=== PATIENT | female | born 1980 | race American Indian/Alaskan Native ===

== ENCOUNTER 2016-12-02 10:28 | Emergency (ER) | payer SELFPAY ==
[2016-12-02] MEDS ORDERED: NORVASC PO ONE (18:31)
--- NOTE | 2016-12-02 18:31 | Emergency Department Report ---
ED Neuro Deficit HPI - General Chief Complaint: Neuro Symptoms/Deficit Stated Complaint: R FOOT NUMB/PAIN Time Seen by Provider: 12/02/16 17:47 Source: patient Mode of arrival: Ambulatory Limitations: No Limitations - History of Present Illness Initial Comments: 36-year-old female past medical history hypertension presents with complaint of one month of right lower extremity sensation of tingling and numbness above the right foot on skin. Patient also states that she has been off of her hypertension medicines for approximately 5-6 months. States that she self discontinued her hypertension medicines due to financial reasons. On exam patient is awake alert and oriented 3 fully lucid cooperative, ambulatory. Patient also brought her 1-year-old son for evaluation as she is concerned he has an ear infection. On exam and during interview patient denies any chest pain palpitations shortness of breath nausea vomiting any upper extremity paresthesias or any weakness. Denies any recent trauma. No recent falls. Denies any recent travel. Denies any fever or chills. She denies any personal hx of CVA. Patient denies any lower extremity swelling no history of DVT or PE. States she has Copper IUD but not on any hormonal control, no recent surgeries. Onset/Timin -: month(s) Location: right leg Place: home Severity: mild Quality: burning Improves With: none Worsens With: none On Anticoagulants: No Context: gradual onset Treatments Prior to Arrival: none - Related Data Home Medications: Previous Rx's Medication Instructions Recorded Last Taken Type amLODIPine [Norvasc] 5 mg PO DAILY #30 tab 12/02/16 Unknown Rx Allergies/Adverse Reactions: Allergies Allergy/AdvReac Type Severity Reaction Status Date / Time No Known Allergies Allergy Unverified 12/02/16 10:51 ED Review of Systems ROS: Stated complaint: R FOOT NUMB/PAIN Other details as noted in HPI Constitutional: denies: chills, fever Eyes: denies: eye pain, eye discharge, vision change ENT: denies: ear pain, throat pain Respiratory: denies: cough, shortness of breath, wheezing Cardiovascular: denies: chest pain, palpitations Endocrine: no symptoms reported Gastrointestinal: denies: abdominal pain, nausea, diarrhea Genitourinary: denies: urgency, dysuria, discharge Musculoskeletal: denies: back pain, joint swelling, arthralgia Skin: denies: rash, lesions Neurological: denies: headache, weakness, paresthesias Psychiatric: denies: anxiety, depression Hematological/Lymphatic: denies: easy bleeding, easy bruising ED Past Medical Hx - Past Medical History Hx Hypertension: Yes - Social History Smoking Status: Current Every Day Smoker - Medications Home Medications: Home Medications Medication Instructions Recorded Confirmed Last Taken Type amLODIPine [Norvasc] 5 mg PO DAILY #30 tab 12/02/16 Unknown Rx ED Neuro Physical Exam - General Limitations: No Limitations General appearance: alert, in no apparent distress Suspected Stroke: No - Head Head exam: Present: atraumatic, normocephalic - Eye Eye exam: Present: normal appearance, PERRL, EOMI - ENT ENT exam: Present: mucous membranes moist - Neck Neck exam: Present: normal inspection - Respiratory Respiratory exam: Present: normal lung sounds bilaterally. Absent: respiratory distress - Cardiovascular Cardiovascular Exam: Present: regular rate, normal rhythm. Absent: systolic murmur, diastolic murmur, rubs, gallop - GI/Abdominal GI/Abdominal exam: Present: soft, normal bowel sounds - Extremities Exam Extremities exam: Present: normal inspection, full ROM - Expanded Lower Extremity Exam Right Hip exam: Present: normal inspection, full ROM Upper Leg exam: Present: normal inspection, full ROM Knee exam: Present: normal inspection, full ROM Lower Leg exam: Present: normal inspection, full ROM Ankle exam: Present: normal inspection, full ROM Foot/Toe exam: Present: normal inspection, full ROM Neuro vascular tendon exam: Present: no vascular compromise (H and has strong dorsalis pedis and posterior tibial pulses capillary refill less than 1 second toes distal sensation is fully intact to light touch sharp sensation tested with 18-gauge needle and dull sensation tested with tip of blunt IV catheter cover) Gait: Positive: observed and normal 1 - Patient states she has been feeling intermittent tingling burning and intermittent numbness sensation in this region - Back Exam Back exam: Present: normal inspection - Neurological Exam Neurological exam: Present: alert, oriented X3, CN II-XII intact, normal gait - NIHSS Assessment Interval: Baseline 1a. Level of Consciousness: alert 1b. LOC Questions: answers correctly 1c. LOC Commands: performs tasks correctly 2. Best Gaze: normal 3. Visual: no visual loss 4. Facial Palsy: normal symmetrical movement 5b. Motor Arm Right: no drift 5a. Motor Arm Left: no drift 6a. Motor Leg Left: no drift 6b. Motor Leg Right: no drift 7. Limb Ataxia: absent 8. Sensory: normal 9. Best Language: no aphasia 10. Dysarthria: normal 11. Extinction/Inattention: no abnormality Total Score: 0 Stroke Severity: No Stroke Symptoms - Psychiatric Psychiatric exam: Present: normal affect, normal mood - Skin Skin exam: Present: warm, dry, intact, normal color. Absent: rash ED Course Vital Signs 12/02/16 12/02/16 12/02/16 10:36 18:50 18:51 Temperature 98.3 F 98.5 F Pulse Rate 87 72 Respiratory 16 16 16 Rate Blood Pressure 174/117 Blood Pressure 152/104 [Left] O2 Sat by Pulse 100 100 99 Oximetry 12/02/16 12/02/16 18:57 20:45 Temperature Pulse Rate 72 72 Respiratory 16 Rate Blood Pressure 153/104 Blood Pressure 186/107 [Left] O2 Sat by Pulse 97 Oximetry - Lab Data Result diagrams: 12/02/16 19:47 12/02/16 19:47 Lab Results 12/02/16 12/02/16 12/02/16 Range/Units 19:47 19:47 19:47 WBC 6.9 (4.5-11.0) K/mm3 RBC 4.85 (3.65-5.03) M/mm3 Hgb 13.6 (10.1-14.3) gm/dl Hct 43.2 H (30.3-42.9) % MCV 89 (79-97) fl MCH 28 (28-32) pg MCHC 32 (30-34) % RDW 15.6 H (13.2-15.2) % Plt Count 266 (140-440) K/mm3 Lymph % (Auto) 43.1 H (13.4-35.0) % [place] % (Auto) 8.4 H (0.0-7.3) % Eos % (Auto) 5.8 H (0.0-4.3) % Baso % (Auto) 1.1 (0.0-1.8) % Lymph # 3.0 (1.2-5.4) K/mm3 [place] # 0.6 (0.0-0.8) K/mm3 Eos # 0.4 (0.0-0.4) K/mm3 Baso # 0.1 (0.0-0.1) K/mm3 Seg Neutrophils % 41.6 (40.0-70.0) % Seg Neutrophils # 2.9 (1.8-7.7) K/mm3 Sodium 139 (137-145) mmol/L Potassium 4.4 (3.6-5.0) mmol/L Chloride 102.5 (98-107) mmol/L Carbon Dioxide 22 (22-30) mmol/L Anion Gap 19 mmol/L BUN 9 (7-17) mg/dL Creatinine 0.7 (0.7-1.2) mg/dL Estimated GFR > 60 ml/min BUN/Creatinine Ratio 12.85 % Glucose 85 (65-100) mg/dL Calcium 9.1 (8.4-10.2) mg/dL HCG, Qual Negative (Negative) - Medical Decision Making A/P: Right lower extremity paresthesias, possible peripheral neuropathy, uncontrolled hypertension 1-restart patient on amlodipine 2-patient has good distal pulses on bedside arterial Doppler, good distal sensation on clinical exam, strong dorsalis pedis and posterior tibial pulses strength is 5/5 all extremities no clinical signs of CVA. 3-pt has no clinical signs of dvt/pe, Well Score 0 points Low risk group for DVT. Unlikely according to [facility] DVT studies. 4-CT head within normal limits no signs of infarct, patient has no clinical signs of CVA no pronator drift strength is 5 out of 5 all extremities no facial droop no slurred speech 5- referral to neurology and primary care for workup of paresthesias 6-thighs patient to take her hypertension medicine as uncontrolled hypertension can result in complications including peripheral neuropathy stroke and heart attack permanent disability and/or stroke and intracranial hemorrhage can result in . Patient stated that she understood my clinical advice and would follow up with a primary doctor 7- case d/w Dr. Romero before discharge Critical care attestation.: If time is entered above; I have spent that time in minutes in the direct care of this critically ill patient, excluding procedure time. ED Disposition Clinical Impression: Distal paresthesia Hypertension Qualifiers: Hypertension type: unspecified secondary hypertension Qualified Code(s): I15.9 - Secondary hypertension, unspecified Disposition: DISCHARGED TO HOME OR SELFCARE Is pt being admited?: No Does the pt Need Aspirin: No Condition: Stable Instructions: Paresthesia (ED), Hypertension (ED) Prescriptions: amLODIPine [Norvasc] 5 mg PO DAILY #30 tab Referrals: [facility] [Outside] - 3-5 Days YUNI COONEY MD [Staff Physician] - 3-5 Days THADDEUS DUGAN MD [Staff Physician] - 3-5 Days Forms: Accompanied Note, Work/School Release Form(ED) Time of Disposition: 20:41
[2016-12-02 20:05] LABS: Basophils % (Auto) 1.1 % (0.0-1.8); Eosinophils % (Auto) 5.8 % (0.0-4.3); Hematocrit 43.2 % (30.3-42.9); Hemoglobin 13.6 gm/dl (10.1-14.3); Mean Corpuscular HGB Conc 32 % (30-34); Mean Corpuscular Hemoglobin 28 pg (28-32); Mean Corpuscular Volume 89 fl (79-97); Platelet Count 266 K/mm3 (140-440); Red Blood Count 4.85 M/mm3 (3.65-5.03); Red Cell Distribution Width 15.6 % (13.2-15.2); White Blood Count 6.9 K/mm3 (4.5-11.0)
[2016-12-02 20:21] LABS: Anion Gap 19 mmol/L; BUN/Creatinine Ratio 12.85; Blood Urea Nitrogen 9 mg/dL (7-17); Calcium 9.1 mg/dL (8.4-10.2); Carbon Dioxide 22 mmol/L (22-30); Chloride 102.5 mmol/L (98-107); Glucose 85 mg/dL (65-100); Potassium 4.4 mmol/L (3.6-5.0); Sodium 139 mmol/L (137-145)
[2016-12-02] MEDS ORDERED: BABY ASPIRIN PO ONE (20:31)
--- NOTE | 2016-12-02 20:32 | Cat Scan Report ---
FINAL REPORT EXAM: CT HEAD/BRAIN WO CON HISTORY: rle paresthesias COMPARISON: None available. TECHNIQUE: Axial images obtained skull base through vertex. FINDINGS: No acute intracranial hemorrhage, midline shift or pathologic extra axial fluid collection. Ventricles and cisterns are normal in size and configuration for the patient's age. [place]-white differentiation preserved. Calvarium grossly intact. Visualized para-nasal sinuses and mastoid air cells are clear. Orbits are grossly unremarkable. IMPRESSION: No grossly acute intracranial abnormality.
[2016-12-02 20:51] VITALS: BP 186/107
== END 2016-12-02 20:45 | disposition home or self-care (01) ==
LOC: ED 10:28
DX: I15.9 Secondary hypertension, unspecified (principal); F17.200 Nicotine dependence, unspecified, uncomplicated
CPT/HCPCS: 36415; 70450; 80048; 84703; 85025